=== PATIENT | male | born 1990 | race African-American/Black ===

== ENCOUNTER 2020-10-29 13:29 | Emergency (ER) | payer BC, OTHER ==
[~2020-10-29] VITALS: Ht 167.6 cm; Wt 80.7 kg
[2020-10-29 15:35] LABS: ABSOLUTE NEUTROPHILS 10.1 thou/uL (1.4-8.2); BASOPHILS 0.5 % (0.0-2.0); EOSINOPHILS 2.1 % (0.0-3.0); HEMATOCRIT 43.5 % (42.0-52.0); HEMOGLOBIN 14.6 gm/dL (14.0-18.0); LYMPHOCYTES 12.4 % (24.0-44.0); MCH 27.8 pg (26.0-34.0); MCHC 33.5 g/dL (28.0-37.0); MCV 83.2 fL (80.0-100.0); MONOCYTES 10.7 % (1.0-8.0); PLATELET COUNT 269 thou/uL (150-400); POLYS 74.3 % (36.0-66.0); RBC 5.23 mil/uL (4.50-6.00); RDW 13.9 % (10.5-14.5); WBC 13.6 thou/uL (4.0-11.0)
[2020-10-29 15:45] LABS: CALCIUM 8.8 mg/dL (8.5-10.1); CREATININE 0.7 mg/dL (0.7-1.3)
[2020-10-29 15:46] LABS: ALBUMIN 3.9 g/dL (3.4-5.0); POTASSIUM 5.8 mmol/L (3.5-5.1); TOTAL BILIRUBIN 0.6 mg/dL (0.2-1.0)
[2020-10-29] MEDS ORDERED: CLEOCIN HCL300 MG PO (17:02)
[2020-10-29 17:37] VITALS: BP 132/88
== END 2020-10-29 17:38 | disposition home or self-care (01) ==
LOC: ER 13:29
PROVIDERS: Nurse Practitioner Family
DX: R59.0 Localized enlarged lymph nodes (principal)